=== PATIENT | female | born 1995 | race Caucasian/White ===

== ENCOUNTER 2016-10-16 02:32 | Inpatient (IN) | payer BC ==
[2016-10-16 02:15] VITALS: BP 117/74; PULSE 78; RESP 16; TEMP 97.8
[2016-10-16] MEDS ORDERED: MAGNESIUM HYDROXIDE SUSP 30 ML CUP PO PRN (03:00)
[2016-10-16] MEDS ORDERED: diphenhydrAMINE HCL 50 MG CAP - HS PRN PO (03:00)
[2016-10-16] MEDS ORDERED: ALUMINUM/MAGNESIUM/SIMETH 30 ML CUP PO PRN (03:00)
[2016-10-16] MEDS ORDERED: LORazepam 2 MG/ML VIAL IM PRN (03:00)
[2016-10-16] MEDS ORDERED: ACETAMINOPHEN 325 MG TAB PO PRN (03:00)
[2016-10-16] MEDS ORDERED: diphenhydrAMINE HCL 50 MG/ML VIAL - HS PRN IM (03:00)
[2016-10-16 05:30] VITALS: BP 103/66; PULSE 80; RESP 15; TEMP 97.9
[2016-10-16] MEDS: QUEtiapine FUMARATE 100 MG TAB PO SCH ×2 (08:41→20:43)
[2016-10-16] MEDS: DIVALPROEX DR 500 MG TABEC PO SCH ×2 (08:41→20:43)
--- NOTE | 2016-10-16 15:18 | HHI.HP ---
Provisional Diagnosis Admission Date October 16, 2016 at 02:32 [place] I. Brief psychotic disorder Certification of Person's Competence To Provide Express and Informed Consent I have personally examined Cyndie Sutton , a person being served at [facility] on, October 16, 2016 15:11. Express and informed consent means consent voluntarily given in writing, by a competent person, after sufficient explanation and disclosure of the subject matter involved to enable the person to make a knowing and willful decision without any element of force, fraud, deceit, duress, or other form of constraint or coercion. This person is 18 years of age or older, is not now known to be incompetent to consent to treatment with a guardian advocate, and does not have a health care surrogate or proxy currently making medical treatment decisions. I have found this person to be one of the following: [] Competent to provide express and informed consent, as defined above, for voluntary admission to this facility and is competent to provide express and informed consent for treatment. He/she has the consistent capacity to make well reasoned, willful, and knowing decisions concerning his or her medical or mental health treatment. The person fully and consistently understands the purpose of the admission for examination/placement and is fully capable of personally exercising all rights [place] [] Incompetent to provide express and informed consent to voluntary admission, and this is incompetent to provide express and informed consent to treatment. The person must be transferred to involuntary status and a petition for a guardian advocate filed with the Circuit Court. [] Refusing to provide express and informed consent to voluntary admission but is competent to provide express and informed consent for treatment. The person must be discharged or transferred to involuntary status. Form shall be completed within 24 hours of a person's arrival at the receiving facility and filed in the clinical record of each person: 1. Admitted on a voluntary basis 2. Permitted to provide express and informed consent to his/her own treatment 3. Allowed to transfer from involuntary to voluntary status 4. Prior to permitting a person to consent to his or her own treatment after having been previously found incompetent to consent to treatment. History of Present Illness Capacity: Has Capacity HPI Patient admitted under a Covarrubias act with reported suicidal ideation. At this time the patient is denying suicidal or homicidal ideation. She also states that she has a history of hearing voices but denies hearing voices at this time. She does admit to smoking marijuana, and according to [facility] evaluation, she was very psychotic, disoriented, confused, nonresponsive, etc. when she was evaluated there, after smoking marijuana and taking benzodiazepines. Patient recently moved here from [place]. She supposedly has a history of mental illness from previous treatment, including diagnoses of bipolar disorder and schizophrenia. Her mother apparently finds her nonresponsive and inappropriate after she smokes marijuana and has the patient Covarrubias acted. Review of Systems ROS Limitations: Clinical Condition, Unresponsive, Poor Historian Except as stated in HPI: all other systems reviewed are Neg Past Psych History Psychological trauma history Denied Violence risk - others (6 mos) Minimal Violence risk - self (6 mos) Minimal Substance Abuse History Drugs/Alcohol past 12 months Admits to smoking marijuana on a daily basis. Past Family Social History Coded Allergies: No Known Allergies (Unverified , 10/16/16) Active Scripts Quetiapine 100 Mg [id number] Mg PO 1 1/2qhs #45 TAB Prov:Jack Lu MD 10/21/16 Quetiapine 25 Mg Tab50 Mg PO DAILY #30 TAB Prov:Jack Lu MD 10/21/16 Current Medications Medications (Trade) Dose Ordered Sig/Marivel Route Start Time Stop Time Status Last Admin (Ativan) 1 mg Q6H PRN PO 10/16/16 03:00 (Ativan Inj) 1 mg Q6H PRN IM 10/16/16 03:00 (Benadryl) 50 mg HS PRN PO 10/16/16 03:00 (Benadryl Inj) 50 mg HS PRN IM 10/16/16 03:00 (Tylenol) 650 mg Q4H PRN PO 10/16/16 03:00 (Milk Of Magnesia Liq) 30 ml DAILY PRN PO 10/16/16 03:00 (Mag-Al Plus Susp Liq) 30 ml Q6H PRN PO 10/16/16 03:00 (SEROquel) 100 mg BID PO 10/16/16 09:00 10/16/16 08:41 (Depakote Dr) 500 mg BID PO 10/16/16 09:00 10/16/16 08:41 Family History Positive for mood disorder, according to patient. Social History Recently moved to [facility] from [place]. Lives with her mother. Unemployed and has no income at the present time. Smokes marijuana on daily basis to treat her own anxiety and moodiness. Patient's Strengths (min. 2) Resilient and has access to healthcare. Physical Exam GENERAL: SKIN: Warm and dry. HEAD: Normocephalic. EYES: No scleral icterus. No injection or drainage. NECK: Supple, trachea midline. No JVD or lymphadenopathy. CARDIOVASCULAR: Regular rate and rhythm without murmurs, gallops, or rubs. RESPIRATORY: Breath sounds equal bilaterally. No accessory muscle use. GASTROINTESTINAL: Abdomen soft, non-tender, nondistended. MUSCULOSKELETAL: No cyanosis, or edema. BACK: Nontender without obvious deformity. No CVA tenderness. Vital Signs Vital Signs Date Time Temp Pulse Resp B/P Pulse Ox O2 Delivery O2 Flow Rate FiO2 10/16/16 05:30 97.9 80 15 103/66 Mental Status Examination Speech: Hesitant, Slow, Other Orientation: x3 Memory: Unremarkable Thought Process: Other Thought Content: Depersonal Hallucination Type: None Attention and Concentration: Other Attention Remarks Slow to respond. Suicidal Ideation: No Previous Suicide Attempts: No Homicidal Ideation: No Previous Homicide Attempts: No Insight: Fair Judgment: Unrealistic Affect: Anxious Affect if Inappropriate: Blunt Mood: Sad, Anxious Motor Activity: Normal gait Assessment & Plan Problem List: (1) Brief psychotic disorder ICD Code: F23 Assessment & Plan Estimated LOS: 5 days patient appears to be psychotic as exhibited by her slow responses and possible thought blocking. She is not admitting to hallucinations but does come across as paranoid. This may be due to smoking marijuana on a daily basis. However, mother's comments about the patient's past psychiatric history are concerning. She will be observed and evaluated on the unit for responding to internal stimuli. She will be continued on Seroquel 4 anxiety, mood disorder and possible psychotic thinking. This physician will also consider a different antipsychotic medication to treat. Furthermore, patient will have EKG to evaluate cardiac conduction due to the possibility of her medications causing disruption. It is anticipated that she'll be in the hospital for 4-5 days. This physician asked the rod puller and coiler to speak to the patient's mother for more history. This physician spoke to the patient's nurse regarding her current behavioral problems. Jack Lu MD October 16, 2016 15:18
[2016-10-16 17:14] VITALS: BP 108/72; PULSE 84; RESP 15; TEMP 98; O2SAT 96
[2016-10-17 06:38] VITALS: BP 99/66; PULSE 74; RESP 16; TEMP 97.6; O2SAT 97
[2016-10-17] MEDS: QUEtiapine FUMARATE 100 MG TAB PO SCH ×2 (08:18→21:18)
[2016-10-17] MEDS: DIVALPROEX DR 500 MG TABEC PO SCH ×2 (08:18→21:18)
[2016-10-17 20:02] VITALS: BP 115/82; PULSE 84; RESP 17; TEMP 98.1; O2SAT 98
[2016-10-18 05:27] VITALS: BP 89/63; PULSE 72; RESP 16; TEMP 96.7; O2SAT 94
[2016-10-18] MEDS: QUEtiapine FUMARATE 100 MG TAB PO SCH ×2 (08:17→20:20)
[2016-10-18] MEDS: DIVALPROEX DR 500 MG TABEC PO SCH ×2 (08:17→20:20)
--- NOTE | 2016-10-18 15:39 | HHI.PYPN ---
Subjective Remarks Patient seen in her room with nurse Karon, chart reviewed. Patient calm though somewhat guarded with me with poor to fair eye contact. Patient did relax somewhat during the session. Patient acknowledge long history of multiple drug abuse including marijuana, alcohol, cocaine, ecstasy, Kassi's, heroin, benzodiazepines, and opiates. Though she denied intravenous drug use she does somewhat reluctantly acknowledge some conflictual relationship with her mother. Appears mother is aware of patient's substance use and is attempting to gain some type of control of patient's behavior. However at the present time patient does not meet criteria for involuntary psychiatric hospitalization I feel she has the capacity to participate with her treatment sign for medications and for her admission. Thus I'll lift the Covarrubias act allow the patient to sign voluntary. It appears staff is exploring the possibility of patient being referred to lamistad early next week we'll check Depakote level over in a.m. Review of Systems Except as stated in HPI: all other systems reviewed are Neg Objective Alert: Yes [place]: Person, Place, Date Mood: Calm, Depressed Affect: Restricted Memory Intact: Comment (fair) Hallucinations: Other (denies) Delusions: No Delusion Type: Other (vigilant) Suicidal: Ideation (denies) Homicidal: Ideation (denies) Insight/Judgment Poor Vitals/IOs Vital Signs Date Time Temp Pulse Resp B/P Pulse Ox O2 Delivery O2 Flow Rate FiO2 10/18/16 05:27 96.7 72 16 89/63 94 Assessment & Plan Problem List: (1) Brief psychotic disorder ICD Code: F23 Assessment & Plan Estimated LOS: days patient remains quite guarded vigilant, though denying voices or visions at the present time, is acknowledging her long history of multiple drug abuse. And chaotic relationship primarily with her mother Justification for Cont. Inpt. At this time patient will decompensate if placed in the lower level of care Discharge Planning To be determined Request HC Surrog/Guard Advoc?: No Jomar Gore MD October 18, 2016 15:39
[2016-10-18] MEDS: LORazepam 1 MG TAB PO PRN (15:41)
[2016-10-18 18:00] VITALS: BP 124/94; PULSE 124; RESP 20; TEMP 97.3; O2SAT 99
[2016-10-19 05:25] VITALS: BP 142/88; PULSE 69; RESP 16; TEMP 98; O2SAT 96
[2016-10-19] MEDS: DIVALPROEX DR 500 MG TABEC PO SCH ×2 (08:13→21:10)
[2016-10-19] MEDS: QUEtiapine FUMARATE 100 MG TAB PO SCH (08:13)
--- NOTE | 2016-10-19 11:04 | HHI.PYPN ---
Subjective Remarks Patient seen and examined with nurse in weekend coverage. Chart reviewed. It appears that the patient slept 6 hours overnight. Nursing staff tells me that the patient reported extensive substance use prior to admission to Dr. Gore yesterday. On my examination today, the patient seems quite sleepy. She says that she subjectively slept poorly overnight. We discussed adjusting medications in service of bringing this problem under better control. She denies any suicidal or homicidal ideation. No psychotic symptoms in evidence. No physical complaints. No side effects from medications. Review of Systems ROS Limitations: Poor Historian Except as stated in HPI: all other systems reviewed are Neg Objective Alert: Yes [place]: Person, Place, Date Mood: Calm Affect: Blunted Memory Intact: Comment (not formally assessed) Hallucinations: Other (no AVH) Delusions: No Delusion Type: Other (no delusions) Suicidal: Ideation (denies suicidal ideation) Homicidal: Ideation (denies homicidal ideation) Insight/Judgment Poor Remarks No motor abnormalities noted. Thought process somewhat slowed but linear. Labs Test 10/19/16 08:15 Valproic Acid (Depakene) Level 95 MCG/ML Labs reviewed. Depakote level within the therapeutic range. Vitals/IOs Vital Signs Date Time Temp Pulse Resp B/P Pulse Ox O2 Delivery O2 Flow Rate FiO2 10/19/16 05:25 98.0 69 16 142/88 96 Assessment & Plan Problem List: (1) Brief psychotic disorder ICD Code: F23 Assessment & Plan Adjust Seroquel dosing to place the bulk of the dose at night to try to improve subjective sleep quality. Patient already received 100 mg of Seroquel this morning and so I will continue with 100 mg tonight but tomorrow will start 50/ 100 mg. Check an ammonia level to ensure that hyperammonemia related to Depakote is not causing grogginess this morning. Continue to monitor on the inpatient unit. Continue other medications and care as ordered. Justification for Cont. Inpt. Medication changes in process. Discharge Planning Per Dr. Lu Request HC Surrog/Guard Advoc?: No Bassam Flores MD October 19, 2016 11:04
[2016-10-19] MEDS ORDERED: PILL SPLITTER OTHER PRN (12:15)
[2016-10-19] MEDS: LORazepam 1 MG TAB PO PRN (16:15)
[2016-10-19] MEDS ORDERED: hydrOXYzine HCL 50 MG TAB PO PRN (17:30)
[2016-10-19 18:01] VITALS: BP 119/97; PULSE 122; RESP 18; TEMP 98.1; O2SAT 94
[2016-10-19] MEDS ORDERED: QUEtiapine FUMARATE 100 MG TAB PO SCH (21:00)
[2016-10-20 05:06] VITALS: BP 133/89; PULSE 79; RESP 16; TEMP 97.9; O2SAT 97
[2016-10-20] MEDS: DIVALPROEX DR 500 MG TABEC PO SCH ×2 (08:18→21:15)
[2016-10-20] MEDS: QUEtiapine FUMARATE 25 MG TAB PO SCH (08:18)
--- NOTE | 2016-10-20 13:18 | HHI.PYPN ---
Subjective Remarks Patient was seen today for psychiatric reevaluation, patient interviewed primary language [place], she wasn't sleeping, but easily arousable. Patient says that she has been very tired, she reports her mood as fine," I am thinking straight now", she says she feels relaxed, denies depressive symptoms, denies anxiety, denies perceptual disturbances, denies suicidal and homicidal ideation , denies visual and auditory hallucinations. No agitation, no aggressive behavior reported. Patient is compliant with her medications. Review of Systems Other No somatic complaints Objective Alert: Yes [place]: Person, Place, Date Mood: Calm Affect: Appropriate Memory Intact: Comment (not formally assessed) Hallucinations: Other (no AVH) Delusions: No Delusion Type: Other (no delusions) Suicidal: Ideation (denies suicidal ideation) Homicidal: Ideation (denies homicidal ideation) Insight/Judgment Good Labs Test 10/19/16 13:25 Ammonia 18 MCMOL/L Vitals/IOs Vital Signs Date Time Temp Pulse Resp B/P Pulse Ox O2 Delivery O2 Flow Rate FiO2 10/20/16 05:06 97.9 79 16 133/89 97 Assessment & Plan Problem List: (1) Brief psychotic disorder ICD Code: F23 Assessment & Plan Estimated LOS: days Justification for Cont. Inpt. Patient is to continue under longitudinal observation and current level of care for stabilization and safety Request HC Surrog/Guard Advoc?: Stephon Gamez MD October 20, 2016 13:18
[2016-10-20 15:39] VITALS: BP 129/81; PULSE 108; RESP 18; TEMP 98.5; O2SAT 98
[2016-10-20 20:00] VITALS: BP 129/81; PULSE 108; RESP 18; TEMP 98.5; O2SAT 98
[2016-10-20] MEDS ORDERED: QUEtiapine FUMARATE 100 MG TAB PO SCH (21:00)
[2016-10-21 06:00] VITALS: BP 107/73; PULSE 76; RESP 18; TEMP 98.4; O2SAT 100
[2016-10-21] MEDS: DIVALPROEX DR 500 MG TABEC PO SCH (08:30)
[2016-10-21] MEDS: QUEtiapine FUMARATE 25 MG TAB PO SCH (08:32)
[2016-10-21] MEDS ORDERED: QUET1TAB8 PO (12:24)
[2016-10-21] MEDS ORDERED: QUET1TAB7 PO (12:24)
--- NOTE | 2016-10-21 12:24 | HHI.DS ---
Psychiatry Discharge Summary Inpatient Psychiatric care?: Yes Advance Directive: No Reason Not Provided: Due to Patient Condition Mental Health AdvanceDirective: No Health Care Proxy: No Admission Admission Date October 16, 2016 at 02:32 Admission Diagnosis: Brief History Patient admitted under a Covarrubias act with reported suicidal ideation. At this time the patient is denying suicidal or homicidal ideation. She also states that she has a history of hearing voices but denies hearing voices at this time. She does admit to smoking marijuana, and according to [facility] evaluation, she was very psychotic, disoriented, confused, nonresponsive, etc. when she was evaluated there, after smoking marijuana and taking benzodiazepines. Patient recently moved here from [place]. She supposedly has a history of mental illness from previous treatment, including diagnoses of bipolar disorder and schizophrenia. Her mother apparently finds her nonresponsive and inappropriate after she smokes marijuana and has the patient Covarrubias acted. Tobacco Use In Past 30 Days: Cognitive Impairment Alcohol Use: 2-3 Times Per Week Results Blood Pressure 107 / 73 Vital Signs Date Time Temp Pulse Resp B/P Pulse Ox O2 Delivery O2 Flow Rate FiO2 10/21/16 06:00 98.4 76 18 107/73 100 Laboratory Results Test 10/19/16 08:15 Valproic Acid (Depakene) Level 95 MCG/ML (50-100) Medications Approp Antipsych med options 1 - Minimum of three failed multiple trials of monotherapy. 2 - Documented plan to taper to monotherapy due to previous use of multiple meds OR cross-taper in progress at D/C. 3 - Documentation of augmentation of Clozapine. 4 - Justification other than those listed in allowable values 1-3, document here : Discharge Discharge Disposition: Discharge Home Discharge Instructions Diet Instructions: As Tolerated, No Restrictions Activities you can perform: Regular-No Restrictions Discharge/Advance Care Plan Health Problems: (1) Brief psychotic disorder Goals to promote your health * To prevent worsening of your condition and complications * To maintain your health at the optimal level Directions to meet your goals Take your medications as prescribed Follow your dietary instruction Follow activity as directed Keep your appointments as scheduled Take your immunizations and boosters as scheduled If your symptoms worsen call your PCP, if no PCP go to Urgent Care Center or Emergency Room For 30/12 questions related to your inpatient stay or results of tests pending at discharge, please contact Dr. Jack Lu at Smoking is Dangerous to Your Health. Avoid second hand smoking Jack Lu MD October 21, 2016 12:24
--- NOTE | 2016-10-24 12:49 | HHI.PYPN ---
Subjective Remarks This psychiatric progress note for October 17, 2016. Patient continues to appear psychotic, depressed and anxious. Mood and affect continue to be flattened, withdrawn, sad and anxious. Continued on Seroquel and tolerates medication. Started on Prozac for possible mood disorder. Being considered for Abilify as it will treat underlying psychosis and comes in injectable form. Review of Systems ROS Limitations: Clinical Condition, Unresponsive Except as stated in HPI: all other systems reviewed are Neg Objective Alert: Yes [place]: Person, Place, Date Mood: Anxious, Depressed Affect: Restricted Memory Intact: Comment (not formally assessed) Hallucinations: Other (no AVH) Delusions: Yes Delusion Type: Paranoid, Other (no delusions) Suicidal: Ideation (denies suicidal ideation) Homicidal: Ideation (denies homicidal ideation) Insight/Judgment Impaired. Vitals/IOs Vital Signs Date Time Temp Pulse Resp B/P Pulse Ox O2 Delivery O2 Flow Rate FiO2 10/21/16 06:00 98.4 76 18 107/73 100 Assessment & Plan Problem List: (1) Brief psychotic disorder ICD Code: F23 Assessment & Plan Estimated LOS: 4 days will continue to treat with antidepressant, and I psychotic and mood stabilizing medication. Justification for Cont. Inpt. Likely to decompensate at lower level of care. Request HC Surrog/Guard Advoc?: No Jack Lu MD October 24, 2016 12:49
== END 2016-10-21 19:40 | disposition home or self-care (01) | DRG 885 ==
LOC: H260 02:32
PROVIDERS: ADMIT Psychiatry & Neurology Psychiatry; ATTEND Psychiatry & Neurology Psychiatry
DX: F23 Brief psychotic disorder (principal); R45.851 Suicidal ideations; F20.9 Schizophrenia, unspecified; F12.90 Cannabis use, unspecified, uncomplicated; F31.9 Bipolar disorder, unspecified
CPT/HCPCS: 80164; 82140